=== PATIENT | female | born 1985 | race African-American/Black ===

== ENCOUNTER 2021-08-28 07:40 | Emergency (ER) | payer MEDICAID ==
[~2021-08-28] VITALS: Ht 170.2 cm; Wt 75.0 kg
[2021-08-28 07:47] VITALS: BP 111/74
[2021-08-28] MEDS ORDERED: DIF15 MT (09:10)
== END 2021-08-28 09:17 | disposition home or self-care (01) ==
LOC: ER 08:11
DX: B34.9 Viral infection, unspecified (principal); N76.0 Acute vaginitis; B37.9 Candidiasis, unspecified; F29 Unspecified psychosis not due to a substance or known physiological condition
CPT/HCPCS: 81025; 99282

== ENCOUNTER 2021-09-04 14:12 | Emergency (ER) | payer MEDICAID ==
[~2021-09-04] VITALS: Ht 170.2 cm; Wt 73.0 kg
[~2021-09-04 14:12] MED LIST: DIF15 MT
[2021-09-04 14:13] VITALS: BP 139/63
[2021-09-04] MEDS ORDERED: TETANUS, DIPHTHERIA, PERTUSSIS VAC/PF 0.5ML (>10YR OLD) IM ONE (16:30)
[2021-09-04] MEDS ORDERED: IBUPROFEN 800MG TABLET PO ONE (16:30)
[2021-09-04] MEDS ORDERED: AMOX-424 MT (17:23)
== END 2021-09-04 17:11 | disposition left against medical advice (07) ==
LOC: ER 14:12
DX: S50.872A Other superficial bite of left forearm, initial encounter (principal); S91.311A Laceration without foreign body, right foot, initial encounter; Y04.1XXA Assault by human bite, initial encounter; Y07.03 Male partner, perpetrator of maltreatment and neglect; Y93.89 Activity, other specified; Y92.018 Other place in single-family (private) house as the place of occurrence of the external cause
CPT/HCPCS: 70486; 73630; 99284

== ENCOUNTER 2021-11-02 09:30 | Emergency (ER) | payer MEDICAID ==
[~2021-11-02] VITALS: Ht 170.2 cm; Wt 72.0 kg
[~2021-11-02 09:30] MED LIST changes: +AMOX-424 MT
[2021-11-02 10:11] LABS: BASOPHILS % 1.2 % (0.0-2.0); EOSINOPHILS % 1.8 % (0.0-5.0); HEMOGLOBIN. 9.9 g/dL (12.0-16.0); LYMPHOCYTES % 26.5 % (20.0-50.0); MEAN CORPUSCULAR HEMOGLOBIN 21.5 pg (28.0-32.0); MEAN PLATELET VOLUME 6.8 fl (7.4-10.4); MONOCYTES % 12.9 % (2.0-8.0); NEUTROPHILS % 57.6 % (40.0-76.0); PLATELET 479 x1000/uL (130-400); RED BLOOD CELL COUNT 4.63 mill/uL (4.2-5.4); RED CELL DISTRIBUTION WIDTH 21.2 % (11.6-14.6)
[2021-11-02 10:22] LABS: CHLORIDE 103 mEq/L (98-107)
[2021-11-02 10:28] LABS: PLATELET ESTIMATE INCREASED
[2021-11-02 10:46] LABS: B-HCG QUANTITATIVE 52571 mIU/mL (<3)
[2021-11-02 12:11] VITALS: BP 120/70
== END 2021-11-02 12:59 | disposition home or self-care (01) ==
LOC: ER 09:30
DX: O20.0 Threatened abortion (principal); Z3A.09 9 weeks gestation of pregnancy
CPT/HCPCS: 36415; 76801; 80048; 84702; 85025; 86850; 86900; 99284

== ENCOUNTER 2022-04-13 10:19 | Emergency (ER) | payer MEDICAID ==
[~2022-04-13] VITALS: Ht 170.2 cm; Wt 75.0 kg
[2022-04-13] MEDS ORDERED: ACETAMINOPHEN 325MG TABLET PO ONE (11:45)
[2022-04-13 12:19] LABS: BASOPHILS % 1.3 % (0.0-2.0); EOSINOPHILS % 1.1 % (0.0-5.0); HEMATOCRIT. 31.7 % (36.0-48.0); HEMOGLOBIN. 9.7 g/dL (12.0-16.0); LYMPHOCYTES % 30.7 % (20.0-50.0); MEAN CORPUSCULAR HEMOGLOBIN 20.6 pg (28.0-32.0); MEAN CORPUSCULAR VOLUME 66.9 fL (81.0-99.0); MEAN PLATELET VOLUME 6.4 fl (7.4-10.4); MONOCYTES % 9.1 % (2.0-8.0); NEUTROPHILS % 57.8 % (40.0-76.0); PLATELET 478 x1000/uL (130-400); RED BLOOD CELL COUNT 4.73 mill/uL (4.2-5.4); RED CELL DISTRIBUTION WIDTH 19.6 % (11.6-14.6)
[2022-04-13 12:22] LABS: CHLORIDE 102 mEq/L (98-107)
[2022-04-13 12:59] LABS: HCG SCREEN NEGATIVE
[2022-04-13 13:00] VITALS: BP 118/76
[2022-04-13 13:37] LABS: PLATELET ESTIMATE SLIGHTLY INCREASED
== END 2022-04-13 13:50 | disposition home or self-care (01) ==
LOC: ER 10:19
DX: R55 Syncope and collapse (principal); D64.9 Anemia, unspecified; J45.909 Unspecified asthma, uncomplicated; F32.9 Major depressive disorder, single episode, unspecified; Z98.82 Breast implant status; Z98.84 Bariatric surgery status; Z98.890 Other specified postprocedural states
CPT/HCPCS: 36415; 71045; 80053; 84484; 84703; 85025; 99284

== ENCOUNTER 2022-10-16 09:08 | Emergency (ER) | payer MEDICAID ==
[~2022-10-16] VITALS: Ht 167.6 cm; Wt 64.0 kg
[2022-10-16 10:29] LABS: MEAN CORPUSCULAR HEMOGLOBIN 16.4 pg (28.0-32.0); MEAN CORPUSCULAR VOLUME 56.3 fL (81.0-99.0); PLATELET 535 x1000/uL (130-400); RED BLOOD CELL COUNT 4.13 mill/uL (4.2-5.4); RED CELL DISTRIBUTION WIDTH 23.6 % (11.6-14.6)
[2022-10-16 10:37] LABS: CHLORIDE 106 mEq/L (98-107)
[2022-10-16 10:38] LABS: HEMATOCRIT 23.3 % (36.0-48.0); HEMOGLOBIN 6.8 g/dL (12.0-16.0)
[2022-10-16] MEDS ORDERED: POTASSIUM CHLORIDE 20MEQ TABLET SR PO NR (14:30)
[2022-10-16 17:16] LABS: CLARITY URINE CLEAR (CLEAR); COLOR URINE YELLOW (YELLOW); KETONES URINE NEGATIVE (NEGATIVE); LEUKOCYTE ESTERASE URINE NEGATIVE (NEGATIVE); NITRITE URINE NEGATIVE (NEGATIVE); OCCULT BLOOD URINE NEGATIVE (NEGATIVE); PH URINE 6.5 (4.5-8.0); PROTEIN URINE 1+ (NEGATIVE); SPECIFIC GRAVITY URINE 1.017 (1.005-1.030)
[2022-10-16 18:00] VITALS: BP 122/79
== END 2022-10-16 19:06 | disposition home or self-care (01) ==
LOC: ER 09:08
DX: D64.9 Anemia, unspecified (principal); E87.6 Hypokalemia; Z90.49 Acquired absence of other specified parts of digestive tract; Z98.890 Other specified postprocedural states
CPT/HCPCS: 36415; 71045; 80053; 81003; 85027; 86850; 86900; 86901; 86920; 99285; Z7610; 36430; P9016

== ENCOUNTER 2023-08-05 18:51 | Emergency (ER) | payer MEDICAID | END 2023-08-05 19:06 | disposition left against medical advice (07) | LOC: ER 18:51 | DX: K92.0 Hematemesis (principal); Z53.21 Procedure and treatment not carried out due to patient leaving prior to being seen by health care provider | CPT/HCPCS: 99281 ==

== ENCOUNTER 2023-11-11 07:49 | Emergency (ER) | payer MEDICAID ==
[~2023-11-11] VITALS: Ht 162.6 cm; Wt 50.0 kg
[2023-11-11 07:59] VITALS: O2SAT 100
[2023-11-11 10:03] LABS: BASOPHILS % 1.3 % (0.0-2.0); DIFFERENTIAL COMMENT 0; EOSINOPHILS % 0.2 % (0.0-5.0); HEMATOCRIT. 32.3 % (36.0-48.0); LYMPHOCYTES % 15.4 % (20.0-50.0); MEAN CORPUSCULAR HEMOGLOBIN 23.5 pg (28.0-32.0); MEAN CORPUSCULAR HGB CONC 30.8 g/dL (31.0-37.0); MEAN CORPUSCULAR VOLUME 76.3 fL (81.0-99.0); MEAN PLATELET VOLUME 6.8 fl (7.4-10.4); MONOCYTES % 5.1 % (2.0-8.0); PLATELET 482 x1000/uL (130-400); RED BLOOD CELL COUNT 4.23 mill/uL (4.2-5.4); RED CELL DISTRIBUTION WIDTH 20.3 % (11.6-14.6)
[2023-11-11 10:12] LABS: PROTHROMBIN TIME 11.5 sec (9.6-11.0)
[2023-11-11 10:18] LABS: CHLORIDE 107 mEq/L (98-107); POTASSIUM 3.8 mEq/L (3.5-5.1); SODIUM 139 mEq/L (136-145)
[2023-11-11 10:19] LABS: HCG SCREEN NEGATIVE
[2023-11-11 10:24] LABS: CREATININE 0.7 mg/dL (0.6-1.0); GLUCOSE 105 mg/dL (70-105); UREA NITROGEN BLOOD 7 mg/dL (9-23)
[2023-11-11 10:26] LABS: ALANINE AMINOTRANSFERASE 14 IU/L (10-49); ALBUMIN 4.6 g/dL (3.2-4.8); ASPARTATE AMINOTRANSFERASE 23 IU/L (<34); BILIRUBIN TOTAL 0.3 mg/dL (0.1-1.0); PROTEIN TOTAL 7.9 g/dL (6.0-8.3)
[2023-11-11 10:33] LABS: CARBON DIOXIDE 25 mEq/L (21-32)
[2023-11-11] MEDS: DIPHENHYDRAMINE 50MG/ML VIAL IV ONE (10:54)
[2023-11-11] MEDS: FAMOTIDINE 20MG/2ML VIAL IV ONE (10:54)
[2023-11-11] MEDS: PROCHLORPERAZINE 10MG/2ML VIAL IV ONE (10:54)
[2023-11-11] MEDS: SODIUM CHLORIDE 0.9% 1,000 ML IV ONE (10:55)
[2023-11-11 14:11] VITALS: BP 124/78; PULSE 82; RESP 18; TEMP 97.9
== END 2023-11-11 14:12 | disposition home or self-care (01) ==
LOC: ER 07:49
DX: R11.2 Nausea with vomiting, unspecified (principal); R10.13 Epigastric pain; Z90.49 Acquired absence of other specified parts of digestive tract; Z98.890 Other specified postprocedural states
CPT/HCPCS: 80053; 84703; 83690; 85025; 85610; 36415; 74176; 96361; 96374; 96375; 99285; J1200; J3490; J0780; J7030; Z7610 ×3

== ENCOUNTER 2024-06-19 08:38 | Emergency (ER) | payer MEDICAID ==
[~2024-06-19] VITALS: Ht 170.2 cm; Wt 75.0 kg
[2024-06-19 08:41] VITALS: O2SAT 100
[2024-06-19] MEDS ORDERED: NAPR220C61 MT (10:03)
[2024-06-19] MEDS: KETOROLAC 30MG/ML VIAL IM ONE (10:11)
[2024-06-19 10:15] VITALS: BP 124/67; PULSE 88; RESP 16; TEMP 36.50292; O2SAT 100
== END 2024-06-19 10:16 | disposition home or self-care (01) ==
LOC: ER 08:38
DX: S20.219A Contusion of unspecified front wall of thorax, initial encounter (principal); G89.11 Acute pain due to trauma; F31.9 Bipolar disorder, unspecified; D64.9 Anemia, unspecified; F41.9 Anxiety disorder, unspecified; Z90.49 Acquired absence of other specified parts of digestive tract; Z98.890 Other specified postprocedural states; V43.52XA Car driver injured in collision with other type car in traffic accident, initial encounter; Y92.410 Unspecified street and highway as the place of occurrence of the external cause; Y92.89 Other specified places as the place of occurrence of the external cause; Y99.8 Other external cause status
CPT/HCPCS: 81025; 71045; 96372; 99283; J1885; Z7610